=== PATIENT | male | born 1985 | race African-American/Black ===

== ENCOUNTER 2024-06-13 02:30 | Emergency (ER) | payer MEDICAID ==
[~2024-06-13] VITALS: Ht 182.9 cm; Wt 91.0 kg
[~2024-06-13 02:30] MED LIST: BACL-141 MT; LIDO700A15 TP; NAPR-1074 MT
[2024-06-13 02:52] VITALS: O2SAT 99
[2024-06-13 03:08] LABS: CHLORIDE 106 mEq/L (98-107); POTASSIUM 4.3 mEq/L (3.5-5.1); SODIUM 138 mEq/L (136-145)
[2024-06-13 03:09] LABS: CARBON DIOXIDE 25 mEq/L (21-32)
[2024-06-13 03:10] LABS: CALCIUM 9.7 mg/dL (8.7-10.4)
[2024-06-13 03:14] LABS: CREATININE 1.3 mg/dL (0.6-1.3); GLUCOSE 97 mg/dL (70-105)
[2024-06-13 03:15] LABS: UREA NITROGEN BLOOD 19 mg/dL (9-23)
[2024-06-13 03:16] LABS: ACETAMINOPHEN < 2 ug/mL (10-30); ALANINE AMINOTRANSFERASE 26 IU/L (10-49); ALBUMIN 4.6 g/dL (3.2-4.8); ASPARTATE AMINOTRANSFERASE 39 IU/L (<34)
[2024-06-13 03:17] LABS: BILIRUBIN DIRECT 0.2 mg/dL (<=3.0); BILIRUBIN TOTAL 0.7 mg/dL (0.1-1.0); PROTEIN TOTAL 8.2 g/dL (6.0-8.3)
[2024-06-13 03:30] LABS: BASOPHILS % 0.4 % (0.0-2.0); EOSINOPHILS % 0.2 % (0.0-5.0); HEMATOCRIT. 41.9 % (42.0-52.0); HEMOGLOBIN. 13.7 g/dL (14.0-18.0); LYMPHOCYTES % 15.7 % (20.0-50.0); MEAN CORPUSCULAR HGB CONC 32.6 g/dL (31.0-37.0); MEAN CORPUSCULAR VOLUME 82.9 fL (80.0-94.0); MEAN PLATELET VOLUME 7.9 fl (7.4-10.4); MONOCYTES % 11.4 % (2.0-8.0); NEUTROPHILS % 72.3 % (40.0-76.0); PLATELET 226 x1000/uL (130-400); RED BLOOD CELL COUNT 5.06 mill/uL (4.7-6.1); RED CELL DISTRIBUTION WIDTH 16.1 % (11.6-14.6)
[2024-06-13 04:22] LABS: ETHANOL BLOOD < 10 mg/dL (<10)
[2024-06-13 04:24] LABS: CLARITY URINE CLEAR (CLEAR); COLOR URINE YELLOW (YELLOW); GLUCOSE URINE NEGATIVE (NEGATIVE); KETONES URINE NEGATIVE (NEGATIVE); LEUKOCYTE ESTERASE URINE NEGATIVE (NEGATIVE); NITRITE URINE NEGATIVE (NEGATIVE); OCCULT BLOOD URINE NEGATIVE (NEGATIVE); PROTEIN URINE NEGATIVE (NEGATIVE); SPECIFIC GRAVITY URINE 1.004 (1.005-1.030); UROBILINOGEN URINE 0.2 E.U./dL (0.2-1.0)
[2024-06-13 04:33] LABS: *AMPHETAMINES SCREEN URINE PRESUMPTIVE POSITIVE (NEGATIVE); *BARBITURATES SCREEN URINE NEGATIVE (NEGATIVE); *BENZODIAZEPINES SCREEN URINE NEGATIVE (NEGATIVE); *COCAINE SCREEN URINE NEGATIVE (NEGATIVE)
[2024-06-13 04:34] LABS: CANNABINOID URINE SCREEN NEGATIVE (NEGATIVE); ECSTASY MDMA SCREEN URINE NEGATIVE (NEGATIVE); METHADONE URINE SCREEN NEGATIVE (NEGATIVE); OPIATES URINE SCREEN NEGATIVE (NEGATIVE); PHENCYCLIDINE URINE SCREEN NEGATIVE (NEGATIVE)
[2024-06-13] MEDS: OLANZAPINE 5MG TABLET PO SCH (05:21)
[2024-06-13] MEDS: LORAZEPAM 1MG TABLET PO ONE (06:20)
[2024-06-13 10:00] VITALS: BP 142/80; PULSE 95; RESP 16; TEMP 36.72516; O2SAT 100
[2024-06-13] MEDS: OLANZAPINE 10 MG/VIAL IM ONE (10:33)
[2024-06-13] MEDS: LORAZEPAM 2MG/ML INJ IM ONE (10:33)
[2024-06-13] MEDS: DIPHENHYDRAMINE 50MG/ML VIAL IM STA (10:33)
[2024-06-13] MEDS ORDERED: TRAZODONE HCL 50MG TABLET PO SCH (21:00)
== END 2024-06-13 12:43 | disposition left against medical advice (07) ==
LOC: ER 02:30
DX: R44.0 Auditory hallucinations (principal); J45.909 Unspecified asthma, uncomplicated; I10 Essential (primary) hypertension; Z20.822 Contact with and (suspected) exposure to COVID-19; Z88.6 Allergy status to analgesic agent
CPT/HCPCS: 80076; 80305; 80048; 81003; 80307; 80329; 80320; 85025; 36415; 99285; 87426; J3490; J1200; J2060; Z7610; G0480